=== PATIENT | female | born 1945 | race Caucasian/White ===

== ENCOUNTER 2018-07-12 13:37 | Emergency (ER) | payer MEDICARE ==
--- NOTE | 2018-07-12 16:55 | ED Physician Documentation ---
PD HPI HEAD INJURY - Stated complaint Stated Complaint: HIT HEAD ON DOOR FRAME - Chief complaint Chief Complaint: Trauma Hd/Nk - History obtained from History obtained from: Patient - History of Present Illness Mechanism of head injury: Blow (she was getting up into vehicle, pulled herself up and struck top of head on doorframe. [place] lightheaded and feels slow thinking. No vomiting. No LOC.) Timing - onset: Today Location of injury: Top Quality of pain: Throbbing, Aching Associated symptoms: AMS (felt lightheaded and slow thinking/dazed). No: LOC, Nausea / vomiting Symptoms worsen with: Palpation Contributing factors: No: Anticoagulated, Intoxicated Similar symptoms before: Has not had sx before Recently seen: Not recently seen Review of Systems Eyes: denies: Loss of vision, Decreased vision GI: denies: Nausea, Vomiting Musculoskeletal: denies: Neck pain, Back pain Neurologic: reports: Headache, Head injury. denies: Focal weakness, Numbness, Near syncope, LOC PD PAST MEDICAL HISTORY - Past Medical History Cardiovascular: None Respiratory: None Neuro: None - Present Medications Home Medications: Ambulatory Orders Medication Instructions Recorded Confirmed Amphetamine Sulfate [Evekeo] 10 mg DAILY 07/12/18 07/12/18 Gabapentin 0 mg PO 07/12/18 Sertraline HCl 50 mg DAILY 07/12/18 07/12/18 buPROPion [Wellbutrin Sr] 0 mg PO BID 07/12/18 07/12/18 - Allergies Allergies/Adverse Reactions: Allergies Allergy/AdvReac Type Severity Reaction Status Date / Time codeine Allergy Unknown Verified 07/12/18 13:47 PD ED PE NORMAL - Vitals Vital signs reviewed: Yes - General General: Alert and oriented X 3, No acute distress, Well developed/nourished - HEENT HEENT: PERRL, EOMI, Other (tender at top of head) - Neck Neck: Supple, no meningeal sign, No bony TTP, No adenopathy - Cardiac Cardiac: RRR, No murmur - Respiratory Respiratory: Clear bilaterally - Back Back: No spinal TTP - Derm Derm: Normal color, Warm and dry - Neuro Neuro: Alert and oriented X 3, cpht 2-12 intact, No motor deficit, No sensory deficit, Normal speech, Other Eye Opening: Spontaneous Motor: Obeys Commands Verbal: Oriented GCS Score: 15 Results - Vitals Vitals: Vital Signs - 24 hr 08/30/18 08/30/18 08/30/18 13:41 17:14 18:57 Temperature 36.5 C 37.1 C 36.5 C Heart Rate 84 81 76 Respiratory 16 18 18 Rate Blood Pressure 123/78 121/66 126/71 O2 Saturation 96 96 97 Oxygen O2 Source Room air - Rads (name of study) head CT Radiology: Prelim report reviewed (no ICH nor focal findings. ) PD MEDICAL DECISION MAKING - ED course Complexity details: reviewed results, considered differential (prolonged ER time with her being in waiting room for 3 hours due to nursing staffing.), d/w patient - Sepsis Event Vital Signs: Vital Signs - 24 hr 07/12/18 07/12/18 07/12/18 13:41 17:14 18:57 Temperature 36.5 C 37.1 C 36.5 C Heart Rate 84 81 76 Respiratory 16 18 18 Rate Blood Pressure 123/78 121/66 126/71 O2 Saturation 96 96 97 Oxygen O2 Source Room air Departure - Departure Disposition: 01 Home, Self Care Clinical Impression: Mild concussion Qualifiers: Encounter type: initial encounter Loss of consciousness presence/duration: without LOC Qualified Code(s): S06.0X0A - Concussion without loss of consciousness, initial encounter Head contusion Qualifiers: Encounter type: initial encounter Contusion of head detail: scalp Qualified Code(s): S00.03XA - Contusion of scalp, initial encounter Condition: Stable Record reviewed to determine appropriate education?: Yes Instructions: ED Concussion Follow-Up: Edy Gautam MD [Primary Care Provider] - Comments: Tylenol ibuprofen if needed for pains. Your CT scan appears normal without any signs of bleeding swelling or fracture. I do expect some mild headache and lightheadedness intermittently over the next couple of 3 days. Should improve during that time. Recheck if persistent symptoms or worsening problems. Discharge Date/Time: 07/12/18 18:58
[2018-07-12] MEDS ORDERED: HYDROcod/ACETAM 5/325 MG TABLET PO STA (17:12)
[2018-07-12] MEDS ORDERED: ONDANSETRON ODT 4 MG TABLET TL STA (17:12)
--- NOTE | 2018-07-12 18:51 | CT Report ---
Reason: hit head; headache and dizzy Procedure Date: 07/12/2018 Accession Number: [id number] / [id number] Procedure: CT - Head W/O CPT Code: FULL RESULT: EXAM: CT HEAD EXAM DATE: 07/12/2018 06:25 PM. CLINICAL HISTORY: Hit head; headache and dizzy. COMPARISON: None. TECHNIQUE: Multiaxial CT images were obtained from the foramen magnum to the vertex. Reformats: Coronal. IV contrast: None. In accordance with CT protocol optimization, one or more of the following dose reduction techniques were utilized for this exam: automated exposure control, adjustment of mA and/or KV based on patient size, or use of iterative reconstructive technique. FINDINGS: Parenchyma: No intraparenchymal hemorrhage. No evidence of mass, midline shift, or CT findings of acute infarction. Casey-white differentiation is distinct. 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 Extraaxial Spaces: Normal for age. No subdural or epidural collections identified. Ventricles: The ventricles and cortical sulci are enlarged, consistent with age-related tissue loss. Sinuses and orbits: Imaged paranasal sinuses, orbits, and mastoids show no significant abnormality. Bones: No evidence of fracture or calvarial defect. Other: None. IMPRESSION: Generalized age-related cortical atrophic changes without evidence of acute intracranial abnormality. [facility]
[2018-07-12 18:58] VITALS: BP 126/71
== END 2018-07-12 18:58 | disposition home or self-care (01) ==
LOC: ED 13:37
DX: S06.0X0A Concussion without loss of consciousness, initial encounter (principal); S00.03XA Contusion of scalp, initial encounter; W22.09XA Striking against other stationary object, initial encounter
CPT/HCPCS: 70450; 99282; 99283; A9270